=== PATIENT | female | born 1965 ===

== ENCOUNTER 2016-10-04 17:35 | Emergency (ER) | payer SELFPAY ==
--- NOTE | 2016-10-05 10:36 | EKG REPORT ---
SEVERITY:- BORDERLINE ECG - SINUS RHYTHM PROBABLE LEFT ATRIAL ABNORMALITY : Confirmed by: Jaquelin Munguia MD 05-Oct-2016 10:36:16
== END 2016-10-04 18:00 | disposition left against medical advice (07) ==
LOC: ER 17:35
DX: Z53.21 Procedure and treatment not carried out due to patient leaving prior to being seen by health care provider (principal)
CPT/HCPCS: 93005; 93010